=== PATIENT | female | born 1975 | race Caucasian/White ===

== ENCOUNTER 2023-06-24 07:44 | Outpatient (RCR) | payer OTHER, SELFPAY ==
--- NOTE | 2023-06-24 09:04 | OPREHPOC ---
Outpatient Therapy Plan of Care This is a Multidisciplinary Plan of Care that may contain components documented by all disciplines (PT, OT, and ST.) PT Problem 1 PT Problem #1 Knowledge Deficit PT Goal 1 Goal 1* indep with HEP PT Problem 2 PT Problem #2 Pain PT Goal 1 Goal 1* pt report headaches every other day 2* pain rating of headache 2/10 at worst PT Problem 3 PT Problem #3 Impaired Vestibular Syste PT Goal 1 Goal pt perform without vestibular s/s: 1* roll R/L in supine 2* supine/sit transfer 3* sit/stand transfer 4* standing 360' turn to R x1 rep 5* standing 360; turn to L x 1 rep 6* further assessment of vestibular system as indicated with treatment progression
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
--- NOTE | 2023-07-08 11:55 | PCPTNOTE ---
Pt. did not show for 07/08/23 appointment.
--- NOTE | 2023-09-10 15:51 | PTOPDC ---
Assessment and note entered by Penny Ta, PT PT Discharge Information Assessment PT Clinical Summary Kanika had the PT evaluation on 06-24-23 for dizziness. She did not return for any further treatment. Discharge PT. The goals were not addressed. Plan of Care PT Services Indicated No
== END 2023-09-10 16:37 | disposition home or self-care (01) ==
LOC: ANHPT 07:44
PROVIDERS: PCP Otolaryngology
DX: H81.12 Benign paroxysmal vertigo, left ear (principal)
CPT/HCPCS: 95992; 97162; 97530; 99199